=== PATIENT | male | born 1955 | race Two or more races ===

== ENCOUNTER 2025-09-20 19:15 | Inpatient (IN) | payer MEDICARE, OTHER ==
[~2025-09-20] VITALS: Ht 213.4 cm; Wt 86.6 kg
[2025-09-20] MEDS ORDERED: ONDANSETRON HCL/PF 4 MG/2 ML VIAL ONE (20:03)
[2025-09-20] MEDS ORDERED: MORPHINE SULFATE INJ 4 MG/ML DISP.SYRIN ONE (20:04)
[2025-09-20] MEDS ORDERED: IV NS 0.9% 250 ML IV ONE (20:09)
[2025-09-20] MEDS ORDERED: IOHEXOL-300 100 ML VIAL IV ONE (20:09)
[2025-09-20] MEDS ORDERED: CT SWABBABLE VALVE TRANS SET 1 EA INFUS.SET MC ONE (20:09)
[2025-09-20] MEDS: IV NS 0.9% 1,000 ML BAG IV ONE (20:10)
[2025-09-20 20:17] LABS: PLATELET COUNT (AUTO) 198 K/uL (150-450); RED BLOOD CELL COUNT(AUTO) 5.15 MIL/uL (4.5-6.0); RED CELL DISTRIBUTION WIDTH 14.6 % (11.5-15.0); WHITE BLOOD COUNT (AUTO) 8.2 K/uL (4.3-11.0)
[2025-09-20] MEDS ORDERED: KETOROLAC TROMETHAMINE 15 MG/ML VIAL ONE (20:18)
[2025-09-20] MEDS: MORPHINE SULFATE INJ 2 MG/ML DISP.SYRIN IV ONE (20:19)
[2025-09-20] MEDS: ONDANSETRON HCL/PF 4 MG/2 ML VIAL IV ONE (20:19)
[2025-09-20] MEDS: KETOROLAC TROMETHAMINE 15 MG/ML VIAL IV ONE (20:24)
[2025-09-20 20:37] LABS: APPEARANCE,URINE CLEAR (CLEAR); BLOOD, URINE 1+ Ery/uL (NEGATIVE); LEUKOCYTE ESTERASE ,URINE NEGATIVE (NEGATIVE); NITRITE, URINE NEGATIVE (NEGATIVE); UGLUCOSE NEGATIVE (NEGATIVE)
[2025-09-20 20:39] LABS: CALCIUM, SERUM 8.6 mg/dL (8.5-10.1); CREATININE 0.9 mg/dL (0.6-1.3); SODIUM SERUM 142.0 mmol/L (136-145); UREA NITROGEN, BLOOD 21.0 mg/dL (7-18)
[2025-09-20 20:41] LABS: ADD URINE CULTURE NO; SQUAMOUS EPITHELIAL CELL,UR 0-2 /HPF (None Seen)
[2025-09-20] MEDS ORDERED: VANCOMYCIN 1 GM /D5W 250 ML PB IV ONE (22:38)
[2025-09-20] MEDS ORDERED: PIPERACI/TAZO 3.375GM/D5W 50ML PB IV ONE (22:38)
[2025-09-20] MEDS: PIPERACILLIN /TAZOBACTAM 3.375 G in IV D5W 50 ML IV ONE (22:40)
[2025-09-20] MEDS: VANCOMYCIN 1 GM in IV D5W 250 ML IV ONE (23:00)
[2025-09-20] MEDS ORDERED: CLINDAMYCIN 900 MG/6 ML VIAL ONE (23:13)
[2025-09-21] MEDS: NICOTINE PATCH (21MG) 21 MG PATCH.TD24 TD SCH
[2025-09-21] MEDS: NICOTINE PATCH (21MG) 21 MG PATCH.TD24 TD ONE (00:19)
[2025-09-21] MEDS: CLINDAMYCIN 600 MG in IV D5W 100 ML IV ONE (00:19)
[2025-09-21] MEDS ORDERED: HYDROCODONE/APAP 10/325MG TABLET PO PRN (02:30)
[2025-09-21] MEDS: PIPERACILLIN /TAZOBACTAM 3.375 G in IV D5W 50 ML IV ONE (02:30)
[2025-09-21] MEDS ORDERED: Z GUARD REMEDY 4 OZ OINT TP PRN (02:30)
[2025-09-21] MEDS ORDERED: ZOLPIDEM TARTRATE 5 MG TABLET PO PRN (02:30)
[2025-09-21] MEDS ORDERED: ONDANSETRON HCL/PF 4 MG/2 ML VIAL IVP PRN (02:30)
[2025-09-21] MEDS ORDERED: DOSING PER PHARMACY-VANCOMYCIN IV XX PRN (02:30)
[2025-09-21] MEDS ORDERED: ACETAMINOPHEN 325 MG TABLET PO PRN (02:30)
[2025-09-21] MEDS: ENOXAPARIN SODIUM 40 MG/0.4 ML DISP.SYRIN SQ SCH (03:12)
[2025-09-21] MEDS ORDERED: PIPERACI/TAZO 3.375GM/D5W 50ML PB IV ONE (03:19)
[2025-09-21 04:00] VITALS: BP 145/79; TEMP 98.1; O2SAT 97
[2025-09-21] MEDS: POTASSIUM CHLORIDE 20 MEQ TAB.PRT.SR PO ONE ×2 (05:24→17:04)
[2025-09-21 06:50] LABS: PLATELET COUNT (AUTO) 184 K/uL (150-450); RED BLOOD CELL COUNT(AUTO) 4.79 MIL/uL (4.5-6.0); RED CELL DISTRIBUTION WIDTH 14.3 % (11.5-15.0); WHITE BLOOD COUNT (AUTO) 6.4 K/uL (4.3-11.0)
[2025-09-21 07:07] LABS: ASPARTATE AMINOTRANSFERASE 10.0 U/L (15-37); CALCIUM, SERUM 8.1 mg/dL (8.5-10.1); CREATININE 0.9 mg/dL (0.6-1.3); SODIUM SERUM 142.0 mmol/L (136-145); TOTAL PROTEIN, SERUM 6.7 g/dL (6.4-8.2); UREA NITROGEN, BLOOD 16.0 mg/dL (7-18)
[2025-09-21 07:14] LABS: LACTIC ACID 0.8 mmol/L (0.4-2.0)
[2025-09-21] MEDS ORDERED: METO25TA4 PO (07:20)
[2025-09-21] MEDS ORDERED: NIFE-35 PO (07:20)
[2025-09-21] MEDS ORDERED: HYDR12.55 PO (07:20)
[2025-09-21] MEDS: PANTOPRAZOLE 40 MG TABLET.DR PO SCH (08:21)
[2025-09-21] MEDS: VANCOMYCIN 750 MG in IV D5W 250 ML IV ONE (08:22)
[2025-09-21] MEDS: PIPERACILLIN /TAZOBACTAM 3.375 G in IV D5W 50 ML IV SCH (09:19)
[2025-09-21 16:17] VITALS: BP 136/93; TEMP 97.3; O2SAT 96
[2025-09-21 20:00] VITALS: BP 134/82; TEMP 97.9; O2SAT 98
[2025-09-21] MEDS: VANCOMYCIN HCL 1.25 GM in IV D5W 250 ML IV SCH (20:03)
[2025-09-22 04:00] VITALS: BP 141/97; TEMP 97.9; O2SAT 97
[2025-09-22 06:37] LABS: CALCIUM, SERUM 8.2 mg/dL (8.5-10.1); CREATININE 0.9 mg/dL (0.6-1.3); SODIUM SERUM 143.0 mmol/L (136-145); UREA NITROGEN, BLOOD 15.0 mg/dL (7-18)
[2025-09-22 06:38] LABS: PHOSPHORUS 2.7 mg/dL (2.5-4.9)
[2025-09-22 06:42] LABS: PLATELET COUNT (AUTO) 192 K/uL (150-450); RED BLOOD CELL COUNT(AUTO) 4.69 MIL/uL (4.5-6.0); RED CELL DISTRIBUTION WIDTH 14.2 % (11.5-15.0); WHITE BLOOD COUNT (AUTO) 5.7 K/uL (4.3-11.0)
[2025-09-22] MEDS: POTASSIUM CHLORIDE 20 MEQ TAB.PRT.SR PO ONE (11:23)
[2025-09-22 12:00] VITALS: BP 133/92; TEMP 97.6; O2SAT 98
[2025-09-22 20:00] VITALS: BP 136/97; TEMP 98.2; O2SAT 96
[2025-09-22] MEDS: AMOX/CLAVULANATE 875 MG TABLET PO SCH (20:30)
[2025-09-23 04:00] VITALS: BP 146/105; TEMP 98.3; O2SAT 96
[2025-09-23 06:17] LABS: CALCIUM, SERUM 8.4 mg/dL (8.5-10.1); CREATININE 0.9 mg/dL (0.6-1.3); PHOSPHORUS 3.1 mg/dL (2.5-4.9); SODIUM SERUM 143.0 mmol/L (136-145); UREA NITROGEN, BLOOD 17.0 mg/dL (7-18)
[2025-09-23 09:28] LABS: PLATELET COUNT (AUTO) 201 K/uL (150-450); RED BLOOD CELL COUNT(AUTO) 4.65 MIL/uL (4.5-6.0); RED CELL DISTRIBUTION WIDTH 14.1 % (11.5-15.0); WHITE BLOOD COUNT (AUTO) 4.7 K/uL (4.3-11.0)
[2025-09-23] MEDS ORDERED: AMOX-430 PO (11:19)
== END 2025-09-23 11:45 | disposition home health service (06) | DRG 728 ==
LOC: ER 19:18 → MEDSG1 09-21 01:04
PROVIDERS: ADMIT Nurse Practitioner Acute Care; ATTEND Nurse Practitioner Family
DX: N49.2 Inflammatory disorders of scrotum (principal); L02.214 Cutaneous abscess of groin; I10 Essential (primary) hypertension; E78.5 Hyperlipidemia, unspecified; F17.200 Nicotine dependence, unspecified, uncomplicated; N40.0 Benign prostatic hyperplasia without lower urinary tract symptoms; Z71.6 Tobacco abuse counseling
CPT/HCPCS: 36415; 72193-TC; 76870-TC; 80048-TC; 80053-TC; 80202-TC; 81001; 83605-TC; 83735-TC; 84100-TC; 85025-TC; 86140-TC; 87040-TC; 87070-TC; A4223; G0378; J1650; J1885; J2270; J2405; J2543; J3373; J3374; J3490; J7030; J7050; J7060; Q9967